=== PATIENT | male | born 1960 | race American Indian/Alaskan Native ===

== ENCOUNTER 2018-10-10 17:15 | Emergency (ER) | payer MEDICARE ==
[2018-10-10] MEDS ORDERED: DUONEB *Not for PRN Use IH ONE ×2 (17:21→22:38)
[2018-10-10] MEDS ORDERED: DECADRON IM ONE (17:21)
--- NOTE | 2018-10-10 17:21 | Emergency Department Report ---
Blank Doc - Documentation Documentation: This is a 58-year-old male that presents with wheezing and shortness of breathe. Stated has history asthma. This initial assessment diagnostic orders/clinical plan/treatment(s) is/are subject to change based on patient's health status, clinical progression and re- assessment by fellow clinical providers in the ED. Further treatment and workup at subsequent clinical providers discretion. Patient/guardians urged not to elope from ED s their condition may be serious if not clinically assessed and managed. Initial orders include: 1-Patient sent to [facility] for further evaluation and treatment 2- CXR 3- Breathing treatment/steroids
[2018-10-10] MEDS ORDERED: DECADRON ONE (22:55)
--- NOTE | 2018-10-10 23:01 | XRay Report ---
FINAL REPORT PROCEDURE: XR CHEST ROUTINE 2V TECHNIQUE: PA and lateral chest radiographs were obtained. CPT 25964 HISTORY: sob/wheezing COMPARISON: No prior studies are available for comparison. FINDINGS: Heart: Normal. Mediastinum/Vessels: Normal. Lungs/Pleural space: Normal. Bony thorax: No acute osseous abnormality. Other: IMPRESSION: Normal examination.
[2018-10-10 23:03] VITALS: BP 138/76
--- NOTE | 2018-10-10 23:53 | Emergency Department Report ---
ED Asthma HPI - General Chief Complaint: Adult Asthma Stated Complaint: CHEST PAINS/SUZAN Time Seen by Provider: 10/10/18 17:19 Source: patient Mode of arrival: Ambulatory Limitations: No Limitations - History of Present Illness Initial Comments: Patient is a 58-year-old male with past medical history of asthma/COPD who is coming in with shortness of breath. Patient states she's had wheeze and some chest tightness. Patient has albuterol inhaler but left it at work. Patient denies any fevers chills. Patient does have a mildly productive cough with clear to yellow sputum. Patient denies any nausea vomiting diarrhea or sore throat neck stiffness at this time. - Related Data Previous Rx's Medication Instructions Recorded Last Taken Type ALBUTEROL Inhaler (OR & NICU) 2 puff IH QID PRN #1 inhalation 10/10/18 Unknown Rx [ProAir HFA Inhaler] Azithromycin [Zithromax Z-LAUREN] 250 mg PO DAILY #6 tablet 10/10/18 Unknown Rx Benzonatate [Tessalon Perles] 100 mg PO Q8HR #10 capsule 10/10/18 Unknown Rx predniSONE [Deltasone] 10 mg PO .TAPER #21 tab 10/10/18 Unknown Rx Allergies Allergy/AdvReac Type Severity Reaction Status Date / Time acetaminophen [From Tylenol] Allergy Unknown Verified 10/10/18 17:17 Penicillins Allergy Unknown Verified 10/10/18 17:17 ED Review of Systems ROS: Stated complaint: CHEST PAINS/SUZAN Other details as noted in HPI Comment: All other systems reviewed and negative ED Past Medical Hx - Past Medical History Hx Asthma: Yes - Social History Smoking Status: Unknown if ever smoked Substance Use Type: None - Medications Home Medications: Home Medications Medication Instructions Recorded Confirmed Last Taken Type ALBUTEROL Inhaler (OR & NICU) 2 puff IH QID PRN #1 inhalation 10/10/18 Unknown Rx [ProAir HFA Inhaler] Azithromycin [Zithromax Z-LAUREN] 250 mg PO DAILY #6 tablet 10/10/18 Unknown Rx Benzonatate [Tessalon Perles] 100 mg PO Q8HR #10 capsule 10/10/18 Unknown Rx predniSONE [Deltasone] 10 mg PO .TAPER #21 tab 10/10/18 Unknown Rx ED Physical Exam - General Limitations: No Limitations General appearance: alert, in no apparent distress - Head Head exam: Present: atraumatic, normocephalic - Eye Eye exam: Present: normal appearance - ENT ENT exam: Present: mucous membranes moist - Neck Neck exam: Present: normal inspection - Respiratory Respiratory exam: Present: wheezes, other (patient speaking in full sentences). Absent: normal lung sounds bilaterally, respiratory distress, rales, rhonchi, stridor - Cardiovascular Cardiovascular Exam: Present: regular rate, normal rhythm. Absent: systolic murmur, diastolic murmur, rubs, gallop - GI/Abdominal GI/Abdominal exam: Present: soft, normal bowel sounds. Absent: distended, tenderness, guarding, rebound - Rectal Rectal exam: Present: deferred - Extremities Exam Extremities exam: Present: normal inspection - Back Exam Back exam: Present: normal inspection - Neurological Exam Neurological exam: Present: alert, oriented X3 - Psychiatric Psychiatric exam: Present: normal affect, normal mood - Skin Skin exam: Present: warm, dry, intact, normal color. Absent: rash ED Course Vital Signs 10/10/18 10/10/18 17:26 23:03 Temperature 98 F 97.6 F Pulse Rate 85 71 Respiratory 22 20 Rate Blood Pressure 127/73 Blood Pressure 138/76 [Left] O2 Sat by Pulse 98 100 Oximetry ED Medical Decision Making - Radiology Data Radiology results: report reviewed (cxr wnl) - Medical Decision Making Patient received 2 DuoNeb and a shot of Decadron. Patient is feeling much improved and will have prescriptions written for his symptomatic relief Critical care attestation.: If time is entered above; I have spent that time in minutes in the direct care of this critically ill patient, excluding procedure time. ED Disposition Clinical Impression: Asthma exacerbation Qualifiers: Asthma severity: moderate Asthma persistence: unspecified Qualified Code(s): J45.901 - Unspecified asthma with (acute) exacerbation Disposition: - TO HOME OR SELFCARE Is pt being admited?: No Does the pt Need Aspirin: No Condition: Stable Instructions: Asthma (ED) Referrals: KINGSLEY QUINTANA MD [Primary Care Provider] - 3-5 Days Time of Disposition: 23:53
== END 2018-10-11 | disposition home or self-care (01) ==
LOC: ED 17:15
DX: J45.901 Unspecified asthma with (acute) exacerbation (principal); Z88.0 Allergy status to penicillin; Z88.5 Allergy status to narcotic agent
CPT/HCPCS: 71046; 94640; 96372; 99283; J1100

== ENCOUNTER 2018-10-21 13:18 | Emergency (ER) | payer MEDICARE ==
--- NOTE | 2018-10-21 13:52 | Emergency Department Report ---
Chief Complaint: Fall Stated Complaint: FALL/BACK PAIN Time Seen by Provider: 10/21/18 13:48 - HPI History of Present Illness: This is a 58 y.o. male that fell into a 6 ft hole yesterday while at work. He is complaining of low back pain. Patient states he fell onto back and denies hitting head. - ROS Review of Systems: low back pain - Exam Vital Signs: Vital Signs 10/21/18 13:51 Temperature 97.5 F L Pulse Rate 97 H Respiratory 16 Rate Blood Pressure 127/80 O2 Sat by Pulse 96 Oximetry MSE screening note: Focused history and physical exam performed. Due to findings the following was ordered: XR of lower back Fast track for further evaluation ED Disposition for MSE Condition: Stable
[2018-10-21 13:57] VITALS: BP 127/80
--- NOTE | 2018-10-21 14:53 | XRay Report ---
LUMBOSACRAL SPINE, 3 VIEWS: History: Low back pain Findings: No evidence for compression deformity, subluxation or bone lesion. [id number] degenerative disc disease and facet arthropathy are identified at all levels. Mild symmetric degenerative changes at the SI joints. Impression: Lumbar spondylosis. No acute process.
[2018-10-21] MEDS ORDERED: TORADOL IM ONE (16:52)
[2018-10-21] MEDS ORDERED: ROXICODONE PO ONE (16:52)
--- NOTE | 2018-10-21 16:56 | Emergency Department Report ---
ED Back Pain/Injury HPI - General Chief Complaint: Fall Stated Complaint: FALL/BACK PAIN Time Seen by Provider: 10/21/18 13:48 Source: patient Limitations: No Limitations - History of Present Illness Initial Comments: 58-year-old male presents to the hospital complaining of lower back pain after fall. 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 One of his spikes became unhinged/broke off and he fell backwards about 6 feet landing on his back. Incident occurred yesterday. Patient has had continuous lower back pain that is moderate to severe, worsened movement and palpation. Patient denies urinary incontinence, leg numbness or weakness, or hematuria. Denies previous back injury. - Related Data Previous Rx's Medication Instructions Recorded Last Taken Type ALBUTEROL Inhaler (OR & NICU) 2 puff IH QID PRN #1 inhalation 10/10/18 Unknown Rx [ProAir HFA Inhaler] Azithromycin [Zithromax Z-LAUREN] 250 mg PO DAILY #6 tablet 10/10/18 Unknown Rx Benzonatate [Tessalon Perles] 100 mg PO Q8HR #10 capsule 10/10/18 Unknown Rx predniSONE [Deltasone] 10 mg PO .TAPER #21 tab 10/10/18 Unknown Rx Cyclobenzaprine [Flexeril] 10 mg PO TID PRN #20 tablet 10/21/18 Unknown Rx Ibuprofen [Motrin] 800 mg PO Q8HR PRN #30 tablet 10/21/18 Unknown Rx oxyCODONE [Roxicodone TAB] 5 mg PO Q6HR PRN #14 tablet 10/21/18 Unknown Rx Allergies Allergy/AdvReac Type Severity Reaction Status Date / Time acetaminophen [From Tylenol] Allergy Unknown Verified 10/10/18 17:17 Penicillins Allergy Unknown Verified 10/10/18 17:17 ED Review of Systems ROS: Stated complaint: FALL/BACK PAIN Other details as noted in HPI Comment: All other systems reviewed and negative ED Past Medical Hx - Past Medical History Hx Asthma: Yes - Surgical History Additional Surgical History: GROINS SURGERY. GALLBLADDER REMOVED. RT EYE SURGERY - Social History Smoking Status: Never Smoker Substance Use Type: Alcohol - Medications Home Medications: Home Medications Medication Instructions Recorded Confirmed Last Taken Type ALBUTEROL Inhaler (OR & NICU) 2 puff IH QID PRN #1 inhalation 10/10/18 Unknown Rx [ProAir HFA Inhaler] Azithromycin [Zithromax Z-LAUREN] 250 mg PO DAILY #6 tablet 10/10/18 Unknown Rx Benzonatate [Tessalon Perles] 100 mg PO Q8HR #10 capsule 10/10/18 Unknown Rx predniSONE [Deltasone] 10 mg PO .TAPER #21 tab 10/10/18 Unknown Rx Cyclobenzaprine [Flexeril] 10 mg PO TID PRN #20 tablet 10/21/18 Unknown Rx Ibuprofen [Motrin] 800 mg PO Q8HR PRN #30 tablet 10/21/18 Unknown Rx oxyCODONE [Roxicodone TAB] 5 mg PO Q6HR PRN #14 tablet 10/21/18 Unknown Rx ED Physical Exam - General Limitations: No Limitations - Other Other exam information: General: No limitations, patient is alert in no acute distress Head exam: Atraumatic, normocephalic Eyes exam: Normal appearance ENT: Moist mucous membrane, normal oropharynx Neck exam: Normal inspection, full range of motion, no midline tenderness Respiratory exam: Clear to auscultation bilateral, no wheezes, rales, crackles Cardiovascular: Normal rate and rhythm, normal heart sounds Abdomen: Soft, nondistended, and nontender, with normal bowel sounds, no rebound, or guarding Extremity: Full range of motion normal inspection no deformity Back: Normal Inspection, no contusion or ecchymosis. Patient has had lower lumbar midline tenderness and tenderness to right paraspinal muscles. Neurologic: Alert, oriented x3, cranial nerves intact, no motor or sensory deficit Psychiatric: normal affect, normal mood Skin: Warm, dry, intact ED Course Vital Signs 10/21/18 13:51 Temperature 97.5 F L Pulse Rate 97 H Respiratory 16 Rate Blood Pressure 127/80 O2 Sat by Pulse 96 Oximetry ED Medical Decision Making - Radiology Data Radiology results: report reviewed LUMBOSACRAL SPINE, 3 VIEWS: History: Low back pain Findings: No evidence for compression deformity, subluxation or bone lesion. [id number] degenerative disc disease and facet arthropathy are identified at all levels. Mild symmetric degenerative changes at the SI joints. Impression: Lumbar spondylosis. No acute process. Transcribed By: TTR - Medical Decision Making No acute fracture identified on x-ray. Patient does not have any neurologic deficits or hematuria. Pain medication and follow-up encouraged - Differential Diagnosis fracture, contusion, sprain Critical Care Time: No Critical care attestation.: If time is entered above; I have spent that time in minutes in the direct care of this critically ill patient, excluding procedure time. ED Disposition Clinical Impression: Back contusion Disposition: TO HOME OR SELFCARE Is pt being admited?: No Does the pt Need Aspirin: No Condition: Stable Instructions: Low Back Strain (ED) Additional Instructions: Take the medication as prescribed. Follow up with your doctor or the clinic/doctor provided. Return if symptoms worsen as indicated by your discharge instructions Prescriptions: Cyclobenzaprine [Flexeril] 10 mg PO TID PRN #20 tablet PRN Reason: Muscle Spasm Ibuprofen [Motrin] 800 mg PO Q8HR PRN #30 tablet PRN Reason: Pain, Moderate (4-6) oxyCODONE [Roxicodone TAB] 5 mg PO Q6HR PRN #14 tablet PRN Reason: Pain [facility] - 3-5 Days Forms: Work/School Release Form(ED) Time of Disposition: 16:56
== END 2018-10-21 17:12 | disposition home or self-care (01) ==
LOC: ED 13:18
DX: S30.0XXA Contusion of lower back and pelvis, initial encounter (principal); Z88.6 Allergy status to analgesic agent; Z88.0 Allergy status to penicillin; J45.909 Unspecified asthma, uncomplicated; W18.30XA Fall on same level, unspecified, initial encounter; Y92.89 Other specified places as the place of occurrence of the external cause; Y99.8 Other external cause status; Y93.89 Activity, other specified
CPT/HCPCS: 72100; 96372; 99283; J1885